=== PATIENT | female | born 1995 | race American Indian/Alaskan Native ===

== ENCOUNTER 2019-09-30 00:07 | Inpatient (IN) | payer OTHER ==
[2019-09-30] MEDS ORDERED: Carboprost Tromethamine 250 MCG/1 ML Amp IM PRN (02:10)
[2019-09-30] MEDS ORDERED: Sodium Chloride 0.9% 10 ML SDV IV PRN (02:10)
[2019-09-30] MEDS ORDERED: Sodium Chloride 0.9% 2.5 ML Syringe FLUSH PRN (02:10)
[2019-09-30] MEDS ORDERED: Water For Irrigation,Sterile 1,000 ML Container IRR PRN (02:10)
[2019-09-30] MEDS ORDERED: Misoprostol 200 MCG Tab PO PRN (02:10)
[2019-09-30] MEDS ORDERED: Tranexamic Acid 1,000 MG in Sodium Chloride 0.9% 100 ML IV PRN (02:10)
[2019-09-30] MEDS ORDERED: Butorphanol 1 MG/ML SDV IVPUSH PRN (02:10)
[2019-09-30] MEDS ORDERED: Methylergonovine 0.2 MG/1 ML Amp IM PRN (02:10)
[2019-09-30] MEDS ORDERED: Ondansetron 4 MG/2 ML SDV IVPUSH PRN (02:10)
[2019-09-30] MEDS ORDERED: Sodium Chloride 0.9% 10 ML Syringe FLUSH PRN (02:10)
[2019-09-30] MEDS ORDERED: Lidocaine 1% 50 ML MDV INJECT PRN (02:10)
[2019-09-30] MEDS ORDERED: Oxytocin/0.9 % Sodium Chloride 30 UNIT/500 ML BAG IV SCH ×2 (02:15→02:30)
[2019-09-30] MEDS ORDERED: Terbutaline 1 MG/ML SDV SUBCUT PRN (02:20)
[2019-09-30] MEDS ORDERED: Misoprostol 25 MCG (1/4 of 100 MCG) Tab VAG PRN (02:20)
[2019-09-30] MEDS: Lactated Ringers 1,000 ML IV SCH ×2 (02:55→21:41)
[2019-09-30] MEDS ORDERED: Vancomycin 2 GM in Sodium Chloride 0.9% 500 ML IV SCH (03:30)
[2019-09-30] MEDS: Misoprostol 25 MCG (1/4 of 100 MCG) Tab VAG PRN ×3 (08:00→16:12)
[2019-09-30] MEDS: Vancomycin 2 GM in Sodium Chloride 0.9% 500 ML IV SCH ×2 (12:28→20:03)
[2019-09-30] MEDS ORDERED: Oxytocin/0.9 % Sodium Chloride 30 UNIT/500 ML BAG ONE (16:51)
[2019-09-30] MEDS ORDERED: Ropivacaine HCl/PF 100 ML ONE (21:22)
[2019-09-30] MEDS ORDERED: fentaNYL 100 MCG/2 ML SDV ONE (21:22)
--- NOTE | 2019-09-30 21:50 | PCM.PREANE ---
Preanesthetic Assessment - Anesthesia/Transfusion/Family Hx Anesthesia History: Prior Anesthesia Without Reaction Family History of Anesthesia Reaction: No Transfusion History: No Prior Transfusion(s) Type of Transfusion Reactions: Reports: Unknown - Review of Systems General: No Symptoms Pulmonary: No Symptoms Cardiovascular: No Symptoms Gastrointestinal: No Symptoms Neurological: No Symptoms, Change in Speech - Physical Assessment NPO Status Date: 09/30/19 NPO Status Time: 16:00 Height: 1.88 m Weight: 138.028 kg ASA Class: 2 Thyro-Mental Finger Breadths: 3 Mouth Opening Finger Breadths: 3 - Lab Values: Laboratory Last Values WBC 8.52 K/uL (4.0-11.0) 09/30/19 02:48 RBC 4.29 M/uL (4.30-5.90) L 09/30/19 02:48 Hgb 11.9 g/dL (12.0-16.0) L 09/30/19 02:48 Hct 36.1 % (36.0-46.0) 09/30/19 02:48 MCV 84.1 fL (80.0-98.0) 09/30/19 02:48 MCH 27.7 pg (27.0-32.0) 09/30/19 02:48 MCHC 33.0 g/dL (31.0-37.0) 09/30/19 02:48 RDW Std Deviation 44.8 fl (28.0-62.0) 09/30/19 02:48 RDW Coeff of Zachariah 15 % (11.0-15.0) 09/30/19 02:48 Plt Count 223 K/uL (150-400) 09/30/19 02:48 MPV 9.50 fL (7.40-12.00) 09/30/19 02:48 Nucleated RBC % 0.0 /100WBC 09/30/19 02:48 Nucleated RBCs # 0 K/uL 09/30/19 02:48 COVID-19 (OLIVIA) NEGATIVE (NEGATIVE) 09/30/19 02:00 Blood Type A POSITIVE 09/30/19 02:48 Antibody Screen NEGATIVE 09/30/19 02:48 - Allergies Allergies/Adverse Reactions: Allergies Allergy/AdvReac Type Severity Reaction Status Date / Time amoxicillin Allergy Hives Verified 09/28/19 03:38 Penicillins Allergy Hives Verified 09/28/19 03:38 - Acknowledgements Anesthesia Type Planned: Epidural Pt an Appropriate Candidate for the Planned Anesthesia: Yes Alternatives and Risks of Anesthesia Discussed w Pt/Guardian: Yes Pt/Guardian Understands and Agrees with Anesthesia Plan: Yes PreAnesthesia Questionnaire HEENT History: Reports: None Cardiovascular History: Reports: None Respiratory History: Reports: None Gastrointestinal History: Reports: None Genitourinary History: Reports: None RUG DRY ROOM ATTENDANT History: Reports: None Musculoskeletal History: Reports: None Neurological History: Reports: None Psychiatric History: Reports: None Endocrine/Metabolic History: Reports: None Hematologic History: Reports: None Immunologic History: Reports: None Oncologic (Cancer) History: Reports: None Dermatologic History: Reports: None - Infectious Disease History Infectious Disease History: Reports: Chicken Pox - Past Surgical History Head Surgeries/Procedures: Reports: None HEENT Surgical History: Reports: None Cardiovascular Surgical History: Reports: None Respiratory Surgical History: Reports: None GI Surgical History: Reports: None Female Surgical History: Reports: None Endocrine Surgical History: Reports: None Neurological Surgical History: Reports: None Musculoskeletal Surgical History: Reports: None Oncologic Surgical History: Reports: None Dermatological Surgical History: Reports: None - SUBSTANCE USE Smoking Status *Q: Never Smoker Second Hand Smoke Exposure: No Recreational Drug Use History: No - HOME MEDS Home Medications: Home Meds Cetirizine HCl [Zyrtec] 09/30/19 [History] Pnv #30/Iron Carb&Aspg/Fa/Om3 [OB Complete with DHA Softgel] 09/30/19 [History] - CURRENT (IN HOUSE) MEDS Current Meds: Current Medications Butorphanol Tartrate (Stadol) 1 mg IVPUSH Q1H PRN PRN Reason: Pain Last Admin: 09/30/19 19:59 Dose: 1 mg Documented by: Carboprost Tromethamine (Hemabate Ds) 250 mcg IM ASDIRECTED PRN PRN Reason: Post Hemorrhage Lactated Ringer's (Ringers, Lactated) 1,000 mls @ 150 mls/hr IV ASDIRECTED LEYLA Last Admin: 09/30/19 21:41 Dose: 999 mls/hr Documented by: Oxytocin/Sodium Chloride (Oxytocin 30 Unit/500 Ml-Ns) 30 unit in 500 mls @ 999 mls/hr IV TITRATE LEYLA Tranexamic Acid 1,000 mg/ (Sodium Chloride) 110 mls @ 660 mls/hr IV ONETIME PRN PRN Reason: Bleeding Oxytocin/Sodium Chloride (Oxytocin 30 Unit/500 Ml-Ns) 30 unit in 500 mls @ 2 mls/hr IV TITRATE LEYLA; Protocol Vancomycin HCl 2 gm/ Sodium (Chloride) 500 mls @ 166.667 mls/hr IV Q8H [facility] Last Admin: 09/30/19 20:03 Dose: 166.667 mls/hr Documented by: Lidocaine HCl (Xylocaine 1%) 50 ml INJECT ONETIME PRN PRN Reason: Laceration repair Methylergonovine Maleate (Methergine) 0.2 mg IM ASDIRECTED PRN PRN Reason: Post Hemorrhage Misoprostol (Cytotec) 200 mcg PO ONETIME PRN PRN Reason: Post Hemorrhage Misoprostol (Cytotec) 25 mcg VAG ONETIME PRN PRN Reason: Cervical Ripening Last Admin: 09/30/19 03:59 Dose: 25 mcg Documented by: Misoprostol (Cytotec) 25 mcg VAG Q4H PRN PRN Reason: Cervical Ripening Last Admin: 09/30/19 16:12 Dose: 25 mcg Documented by: Ondansetron HCl (Zofran) 4 mg IVPUSH Q6H PRN PRN Reason: Nausea/Vomiting Sodium Chloride (Saline Flush) 10 ml FLUSH ASDIRECTED PRN PRN Reason: Keep Vein Open Sodium Chloride (Saline Flush) 2.5 ml FLUSH ASDIRECTED PRN PRN Reason: Keep Vein Open Sodium Chloride (Normal Saline) 10 ml IV ASDIRECTED PRN PRN Reason: IV Use Sterile Water (Sterile Water For Irrigation) 1,000 ml IRR ASDIRECTED PRN PRN Reason: delivery Terbutaline Sulfate (Brethine) 0.25 mg SUBCUT ASDIRECTED PRN PRN Reason: Tacysystole Discontinued Medications Fentanyl (Sublimaze) Confirm Administered Dose 100 mcg .ROUTE .STK-MED ONE Stop: 09/30/19 21:23 Vancomycin HCl 2 gm/ Sodium (Chloride) 250 mls @ 166 mls/hr IV Q8H [facility] Vancomycin HCl 2 gm/ Sodium (Chloride) 500 mls @ 166 mls/hr IV Q8H [facility] Last Admin: 09/30/19 03:55 Dose: 166 mls/hr Documented by: Oxytocin/Sodium Chloride (Oxytocin 30 Unit/500 Ml-Ns) Confirm Administered Dose 30 unit in 500 mls @ as directed .ROUTE .RUSTMED ONE Stop: 09/30/19 16:52 Ropivacaine (Naropin 0.2%) Confirm Administered Dose 100 mls @ as directed .ROUTE .RUSTMED ONE Stop: 09/30/19 21:23
--- NOTE | 2019-09-30 21:56 | PCM.PRNOTE ---
- Free Text/Narrative Note: Anes. Note pt requested labor epidural for L and D Risks and methods discussed. She wishes to proceed Level L2-L3 midline approach. Sterile technique used Chloroprep scrub to lumbar area Steril fenestrated drape applied Epidural space easily achieved Single attempt using MARC Tech MARC at 5cm Cath threaded 5cm with ease Cath secured at skin at 12 cm using Steril clear adhesives dressing Test dose 2145 3cc 1.5% lido with Epi neg Load 2148 10cc 0.2% Ropivacaine with 1mcg/cc Fentanyl added Pump 2151 90cc same solution Rate is 8cc/hr with 6cc q 20 min bolus JESS well Time with patient [id number] Tremayne Melendez FISCAL ACCOUNTANT
[2019-10-01] MEDS: Vancomycin 2 GM in Sodium Chloride 0.9% 500 ML IV SCH (03:42)
[2019-10-01] MEDS ORDERED: fentaNYL 100 MCG/2 ML SDV ONE (07:04)
[2019-10-01] MEDS ORDERED: Ropivacaine HCl/PF 100 ML ONE (07:05)
--- NOTE | 2019-10-01 07:20 | PCM.PRNOTE ---
- Free Text/Narrative Note: Anes Note Epidural infusion is complete. A new epidural bag was placed. 100 cc o,2% ropiviciane with 1 mcg cc fentanyl was started. a 10 cc bolus was administered in slow divided doses. An infusion was started with 90 cc solution at 8 cc hr with 6 cc q 20 min prn bolus. Time with patient [id number]. Tremayne Melendez CRNA
[2019-10-01] MEDS ORDERED: Ibuprofen 400 MG Tab PO PRN (10:55)
[2019-10-01] MEDS ORDERED: Acetaminophen 500 MG Tab PO PRN ×2 (10:55)
[2019-10-01] MEDS ORDERED: Witch Hazel Medicated Pads 40/Jar TOP PRN (10:55)
[2019-10-01] MEDS ORDERED: Benzocaine/Menthol 20%-0.5% Spray 78 GM Cannister TOP PRN (10:55)
[2019-10-01] MEDS ORDERED: Lanolin 100% Cream 7 GM Tube TOP PRN (10:55)
[2019-10-01] MEDS ORDERED: Docusate Sodium 100 MG Cap PO PRN (10:55)
[2019-10-01] MEDS ORDERED: oxyCODONE 5 MG Tab PO PRN (10:55)
[2019-10-01] MEDS ORDERED: Bisacodyl 10 MG Supp RECTAL PRN (10:55)
--- NOTE | 2019-10-01 11:02 | PCM.OPNOTE ---
- General Post-Op/Procedure Note Date of Surgery/Procedure: 10/01/19 Operative Procedure(s): /1st MLL repaired Findings: Viable female AGPARs 8, 9 weight 4120 gm. Spontaneous delivery intact placenta with 3V cord Pre Op Diagnosis: 41/1 week IUP. IOL for past due PG Post-Op Diagnosis: Same Anesthesia Technique: Epidural Primary Surgeon: Katarina Najera EBL in mLs: 250 Complications: none known Condition: Stable Free Text/Narrative:: Dictation [id number]
[2019-10-01] MEDS: Ibuprofen 800 MG Tab PO PRN (14:08)
--- NOTE | 2019-10-01 14:53 | OR ---
SURGEON: Katarina Najera M.D. DATE OF PROCEDURE: 10/01/2019 PREOPERATIVE DIAGNOSES: 1. 41/1 week intrauterine . 2. Induction of labor for past due . 3. Group B beta strep positive. POSTOPERATIVE DIAGNOSES: 1. 41/1 week intrauterine . 2. Induction of labor for past due . 3. Group B beta strep positive. PROCEDURE: Spontaneous vaginal delivery with first-degree vaginal laceration repaired. ANESTHESIA: Epidural. ESTIMATED BLOOD LOSS: 250 mL. COMPLICATIONS: None known. FINDINGS: Viable female. score of 8 at 1 minute and 9 at 5 minutes. Weight of 4120 g. Spontaneous delivery, intact three-vessel cord. DISPOSITION: Infant to nursery, mom in LDRP, stable. PROCEDURE DETAILS: Lavern is a 24-year-old, G1, P0, at 40 and 6/7 weeks' gestational age who was admitted on the evening of 09/29/2019 for scheduled induction of labor for past due . She was initiated on Cytotec ripening. heart tones were category 1. She is known group B beta strep positive and is penicillin and amoxicillin allergic and clindamycin resistant. Therefore, vancomycin is being utilized. The patient responded slowly to the Cytotec. The following afternoon, actually the patient was becoming slightly more uncomfortable, but cervix was still only about 2 cm, 60% effaced, and -2 station. Therefore, she underwent mechanical bulb dilation with cervical catheter. This did help progress the patient nicely. She became quite a bit increasingly uncomfortable, underwent regional anesthesia in the form of epidural. Shortly after 10 p.m., the bulb did extrude nicely as the patient was found to be 4 cm, 70% effaced, -2 station. Amniotomy was performed. Clear fluid was returned. IUPC was placed. The patient continued to labor throughout the night hours on Pitocin induction. By the following morning, the patient was found to be 8 cm, 90% effaced, at 0 station, and within the next 2 hours progressed to complete, 100% effaced, +2 station, and began pushing efforts. The patient pushed through to +3 station, I was called for delivery. At that time, even though I readily presented, the nurse did not recognize the +4 station, continued pushing efforts. I did not discontinue the Pitocin, did not reposition the patient to the left lateral side, and thus the head delivered. Other attending nursing staff from the nursery went on to deliver 's anterior and posterior shoulder, remainder of body without difficulty. Shortly thereafter, I arrived, the infant was vigorous and crying. The typing element machine operator had been in-house with the transfer. The cord was clamped x2 and cut. The cord arterial, cord venous, and cord blood sampling was obtained. Light pressure was applied while the placenta was delivered spontaneously intact. Vigorous fundal uterine massage was then applied while 30 units of Pitocin was delivered in 500 mL of IV fluid. Upon inspection of cervix, vaginal sidewall, and perineum, there was found to be first-degree vaginal laceration repaired using 3-0 Vicryl in continuous running fashion. Hemostasis evident. Uterus remained firm. Sponge count, instrument count, needle counts were correct. The patient tolerated the procedure well overall. She will remain in LDRP, infant to nursery. AIDE / RENETTA /[id number] NICOLAS
--- NOTE | 2019-10-01 19:44 | PCM48HPAN ---
Post Anesthesia Note - EVALUATION WITHIN 48HRS OF ANESTHETIC Vital Signs in Normal Range: Yes Patient Participated in Evaluation: Yes Respiratory Function Stable: Yes Airway Patent: Yes Cardiovascular Function Stable: Yes Hydration Status Stable: Yes Pain Control Satisfactory: Yes Nausea and Vomiting Control Satisfactory: Yes Mental Status Recovered: Yes Vital Signs: Last Vital Signs Temp 36.9 C 10/01/19 15:47 Pulse 88 10/01/19 15:47 Resp 17 10/01/19 15:47 BP 132/66 10/01/19 15:47 Pulse Ox 96 10/01/19 15:47
--- NOTE | 2019-10-02 04:51 | PCM.PNPP ---
- General Info Date of Service: 10/02/19 Functional Status: Reports: Pain Controlled, Tolerating Diet, Ambulating, Urinating - Review of Systems General: Reports: Fatigue. Denies: Fever, Weakness Pulmonary: Denies: Shortness of Breath Cardiovascular: Denies: Chest Pain, Palpitations, Lightheadedness Gastrointestinal: Denies: Abdominal Pain, Nausea, Vomiting Genitourinary: Denies: Flank Pain Musculoskeletal: Reports: No Symptoms Skin: Reports: No Symptoms Neurological: Reports: No Symptoms Psychiatric: Reports: No Symptoms - General Info Date of Service: 10/02/19 - Patient Data Vital Signs - Most Recent: Last Vital Signs Temp 36.8 C 10/01/19 20:50 Pulse 80 10/01/19 20:50 Resp 16 10/01/19 20:50 BP 136/77 10/01/19 20:50 Pulse Ox 98 10/01/19 20:50 Weight - Most Recent: 138.028 kg Lab Results - Last 24 Hours: Laboratory Results - last 24 hr 10/01/19 Range/Units 10:20 Cord ABG pH 7.253 (7.18-7.38) Cord ABG Base Excess -9 (-10--2) Cord VBG pH 7.256 (7.25-7.45) Cord VBG Base Excess -9 (-10--2) Med Orders - Current: Current Medications Acetaminophen (Tylenol Extra Strength) 500 mg PO Q4H PRN PRN Reason: Pain Acetaminophen (Tylenol Extra Strength) 1,000 mg PO Q4H PRN PRN Reason: Pain Benzocaine/Menthol (Dermoplast Pain Relief 20%-0.5% Castile) 78 gm TOP ASDIRECTED PRN PRN Reason: Perineal Comfort Measure Last Admin: 10/01/19 14:06 Dose: 1 canister Documented by: Bisacodyl (Dulcolax) 10 mg RECTAL ONETIME PRN PRN Reason: Constipation Carboprost Tromethamine (Hemabate Ds) 250 mcg IM ASDIRECTED PRN PRN Reason: Post Hemorrhage Docusate Sodium (Colace) 100 mg PO BID PRN PRN Reason: Constipation Emollient Ointment (Lansinoh Hpa) 0 gm TOP ASDIRECTED PRN PRN Reason: Sore Nipples Last Admin: 10/01/19 14:07 Dose: 7 g Documented by: Lactated Ringer's (Ringers, Lactated) 1,000 mls @ 150 mls/hr IV ASDIRECTED LEYLA Last Admin: 09/30/19 21:41 Dose: 999 mls/hr Documented by: Oxytocin/Sodium Chloride (Oxytocin 30 Unit/500 Ml-Ns) 30 unit in 500 mls @ 999 mls/hr IV TITRATE LEYLA Last Infusion: 10/01/19 11:06 Dose: 500 mls/hr Documented by: Tranexamic Acid 1,000 mg/ (Sodium Chloride) 110 mls @ 660 mls/hr IV ONETIME PRN PRN Reason: Bleeding Oxytocin/Sodium Chloride (Oxytocin 30 Unit/500 Ml-Ns) 30 unit in 500 mls @ 2 mls/hr IV TITRATE [facility]; Protocol Last Titration: 10/01/19 10:20 Dose: 0 munits/min, 0 mls/hr Documented by: Ibuprofen (Motrin) 400 mg PO Q4H PRN PRN Reason: Pain Ibuprofen (Motrin) 800 mg PO Q6H PRN PRN Reason: Pain Last Admin: 10/01/19 14:08 Dose: 800 mg Documented by: Methylergonovine Maleate (Methergine) 0.2 mg IM ASDIRECTED PRN PRN Reason: Post Hemorrhage Ondansetron HCl (Zofran) 4 mg IVPUSH Q6H PRN PRN Reason: Nausea/Vomiting Oxycodone HCl (Oxycodone) 5 mg PO Q2H PRN PRN Reason: Pain Sodium Chloride (Saline Flush) 10 ml FLUSH ASDIRECTED PRN PRN Reason: Keep Vein Open Sodium Chloride (Saline Flush) 2.5 ml FLUSH ASDIRECTED PRN PRN Reason: Keep Vein Open Sodium Chloride (Normal Saline) 10 ml IV ASDIRECTED PRN PRN Reason: IV Use Sterile Water (Sterile Water For Irrigation) 1,000 ml IRR ASDIRECTED PRN PRN Reason: delivery Witch Vandana (Tucks) 1 pad TOP ASDIRECTED PRN PRN Reason: comfort care Last Admin: 10/01/19 14:06 Dose: 1 tub Documented by: Discontinued Medications Butorphanol Tartrate (Stadol) 1 mg IVPUSH Q1H PRN PRN Reason: Pain Last Admin: 09/30/19 19:59 Dose: 1 mg Documented by: Fentanyl (Sublimaze) Confirm Administered Dose 100 mcg .ROUTE .STK-MED ONE Stop: 09/30/19 21:23 Last Admin: 10/01/19 15:03 Dose: Not Given Documented by: Fentanyl (Sublimaze) Confirm Administered Dose 100 mcg .ROUTE .STK-MED ONE Stop: 10/01/19 07:05 Last Admin: 10/01/19 15:04 Dose: Not Given Documented by: Vancomycin HCl 2 gm/ Sodium (Chloride) 250 mls @ 166 mls/hr IV Q8H LEYLA Vancomycin HCl 2 gm/ Sodium (Chloride) 500 mls @ 166 mls/hr IV Q8H LEYLA Last Admin: 09/30/19 03:55 Dose: 166 mls/hr Documented by: Vancomycin HCl 2 gm/ Sodium (Chloride) 500 mls @ 166.667 mls/hr IV Q8H LEYLA Last Admin: 10/01/19 03:42 Dose: 166.667 mls/hr Documented by: Oxytocin/Sodium Chloride (Oxytocin 30 Unit/500 Ml-Ns) Confirm Administered Dose 30 unit in 500 mls @ as directed .ROUTE .STK-MED ONE Stop: 09/30/19 16:52 Ropivacaine (Naropin 0.2%) Confirm Administered Dose 100 mls @ as directed .ROUTE .STK-MED ONE Stop: 09/30/19 21:23 Last Admin: 10/01/19 15:03 Dose: Not Given Documented by: Ropivacaine (Naropin 0.2%) Confirm Administered Dose 100 mls @ as directed .ROUTE .STK-MED ONE Stop: 10/01/19 07:06 Last Admin: 10/01/19 15:04 Dose: Not Given Documented by: Lidocaine HCl (Xylocaine 1%) 50 ml INJECT ONETIME PRN PRN Reason: Laceration repair Misoprostol (Cytotec) 200 mcg PO ONETIME PRN PRN Reason: Post Hemorrhage Misoprostol (Cytotec) 25 mcg VAG ONETIME PRN PRN Reason: Cervical Ripening Last Admin: 09/30/19 03:59 Dose: 25 mcg Documented by: Misoprostol (Cytotec) 25 mcg VAG Q4H PRN PRN Reason: Cervical Ripening Last Admin: 09/30/19 16:12 Dose: 25 mcg Documented by: Terbutaline Sulfate (Brethine) 0.25 mg SUBCUT ASDIRECTED PRN PRN Reason: Tacysystole - Infant Interaction Support Person: , Mother - Recovery Exam Fundal Tone: Firm Fundal Level: At Umbilicus Fundal Placement: Midline Lochia Amount: Scant Lochia Color: Rubra/Red Perineum Description: Edematous Episiotomy/Laceration: Approximated Bladder Status: Nonpalpable, Voiding Urinary Elimination: Voided - Exam General: Alert, Oriented Lungs: Normal Respiratory Effort Cardiovascular: Regular Rate, Regular Rhythm GI/Abdominal Exam: Normal Bowel Sounds, Soft Extremities: Pedal Edema (trace). No: Javy's Sign Skin: Warm, Dry, Intact Neurological: No New Focal Deficit Psy/Mental Status: Alert, Normal Affect, Normal Mood - Problem List & Annotations (1) Vaginal delivery SNOMED Code(s): 961222745 Code(s): O80 - ENCOUNTER FOR FULL-TERM UNCOMPLICATED DELIVERY Status: Acute Current Visit: Yes - Problem List Review Problem List Initiated/Reviewed/Updated: Yes - My Orders Last 24 Hours: My Active Orders 10/01/19 10:55 Patient Status [ADT] Routine May Shower [RC] ASDIRECTED Up ad Alana [RC] ASDIRECTED Vital Signs [RC] PER UNIT ROUTINE Acetaminophen [Tylenol Extra Strength] 1,000 mg PO Q4H PRN Acetaminophen [Tylenol Extra Strength] 500 mg PO Q4H PRN Benzocaine/Menthol [Dermoplast Pain Relief 20%-0.5% Castile] 78 gm TOP ASDIRECTED PRN Docusate Sodium [Colace] 100 mg PO BID PRN Ibuprofen [Motrin] 400 mg PO Q4H PRN Ibuprofen [Motrin] 800 mg PO Q6H PRN Lanolin [Lansinoh HPA] See Dose Instructions TOP ASDIRECTED PRN bisacodyL [Dulcolax] 10 mg RECTAL ONETIME PRN oxyCODONE 5 mg PO Q2H PRN witch Vandana [Tucks] 1 pad TOP ASDIRECTED PRN Assess Lochia [WOMSER] Per Unit Routine Assess Uterine Involution [WOMSER] Per Unit Routine Peripheral IV Discontinue [OM.PC] Routine 10/01/19 10:56 Cooling Warming Measures [RC] ASDIRECTED Ice Therapy [OM.PC] Per Unit Routine Perineal Care [OM.PC] Per Unit Routine Sitz Bath [OM.PC] Per Unit Routine 10/02/19 05:11 HEMOGLOBIN/HEMATOCRIT,HH [HEME] Routine - Assessment Assessment:: PPD 1 status post - Plan Plan:: Patient is doing well overall. Private Investigator Surveillance prefers to monitor baby for 48 hours given GBBS + and vancomycin coverage--plus baby has been having some lower blood sugars. Will continue PP cares and anticipate discharge tomorrow.
[2019-10-02] MEDS: Ibuprofen 800 MG Tab PO PRN ×2 (05:17→22:03)
[2019-10-03] MEDS ORDERED: Measles, Mumps & Rubella Vaccine 0.5 ML SDV SUBCUT ONE (10:32)
--- NOTE | 2019-10-03 10:34 | PCM.PNPP ---
- General Info Date of Service: 10/03/19 Functional Status: Reports: Pain Controlled, Tolerating Diet, Ambulating, Urinating - Review of Systems General: Reports: Fatigue. Denies: Fever, Weakness Pulmonary: Denies: Shortness of Breath Cardiovascular: Denies: Chest Pain, Palpitations Gastrointestinal: Denies: Constipation Genitourinary: Denies: Dysuria, Flank Pain Musculoskeletal: Reports: No Symptoms Skin: Reports: No Symptoms Neurological: Reports: No Symptoms Psychiatric: Reports: No Symptoms - General Info Date of Service: 10/03/19 - Patient Data Vital Signs - Most Recent: Last Vital Signs Temp 36.5 C 10/03/19 08:00 Pulse 71 10/03/19 08:00 Resp 17 10/03/19 08:00 BP 134/65 10/03/19 08:00 Pulse Ox 97 10/03/19 08:00 Weight - Most Recent: 138.028 kg Med Orders - Current: Current Medications Acetaminophen (Tylenol Extra Strength) 500 mg PO Q4H PRN PRN Reason: Pain Acetaminophen (Tylenol Extra Strength) 1,000 mg PO Q4H PRN PRN Reason: Pain Benzocaine/Menthol (Dermoplast Pain Relief 20%-0.5% [place]) 78 gm TOP ASDIRECTED PRN PRN Reason: Perineal Comfort Measure Last Admin: 10/01/19 14:06 Dose: 1 canister Documented by: Bisacodyl (Dulcolax) 10 mg RECTAL ONETIME PRN PRN Reason: Constipation Carboprost Tromethamine (Hemabate Ds) 250 mcg IM ASDIRECTED PRN PRN Reason: Post Hemorrhage Docusate Sodium (Colace) 100 mg PO BID PRN PRN Reason: Constipation Emollient Ointment (Lansinoh Hpa) 0 gm TOP ASDIRECTED PRN PRN Reason: Sore Nipples Last Admin: 10/01/19 14:07 Dose: 7 g Documented by: Lactated Ringer's (Ringers, Lactated) 1,000 mls @ 150 mls/hr IV ASDIRECTED LEYLA Last Admin: 09/30/19 21:41 Dose: 999 mls/hr Documented by: Oxytocin/Sodium Chloride (Oxytocin 30 Unit/500 Ml-Ns) 30 unit in 500 mls @ 999 mls/hr IV TITRATE LEYLA Last Infusion: 10/01/19 11:06 Dose: 500 mls/hr Documented by: Tranexamic Acid 1,000 mg/ (Sodium Chloride) 110 mls @ 660 mls/hr IV ONETIME PRN PRN Reason: Bleeding Oxytocin/Sodium Chloride (Oxytocin 30 Unit/500 Ml-Ns) 30 unit in 500 mls @ 2 mls/hr IV TITRATE LEYLA; Protocol Last Titration: 10/01/19 10:20 Dose: 0 munits/min, 0 mls/hr Documented by: Ibuprofen (Motrin) 400 mg PO Q4H PRN PRN Reason: Pain Ibuprofen (Motrin) 800 mg PO Q6H PRN PRN Reason: Pain Last Admin: 10/02/19 22:03 Dose: 800 mg Documented by: Methylergonovine Maleate (Methergine) 0.2 mg IM ASDIRECTED PRN PRN Reason: Post Hemorrhage Ondansetron HCl (Zofran) 4 mg IVPUSH Q6H PRN PRN Reason: Nausea/Vomiting Oxycodone HCl (Oxycodone) 5 mg PO Q2H PRN PRN Reason: Pain Sodium Chloride (Saline Flush) 10 ml FLUSH ASDIRECTED PRN PRN Reason: Keep Vein Open Sodium Chloride (Saline Flush) 2.5 ml FLUSH ASDIRECTED PRN PRN Reason: Keep Vein Open Sodium Chloride (Normal Saline) 10 ml IV ASDIRECTED PRN PRN Reason: IV Use Sterile Water (Sterile Water For Irrigation) 1,000 ml IRR ASDIRECTED PRN PRN Reason: delivery Witch Vandana (Tucks) 1 pad TOP ASDIRECTED PRN PRN Reason: comfort care Last Admin: 10/01/19 14:06 Dose: 1 tub Documented by: Discontinued Medications Butorphanol Tartrate (Stadol) 1 mg IVPUSH Q1H PRN PRN Reason: Pain Last Admin: 09/30/19 19:59 Dose: 1 mg Documented by: Fentanyl (Sublimaze) Confirm Administered Dose 100 mcg .ROUTE .STK-MED ONE Stop: 09/30/19 21:23 Last Admin: 10/01/19 15:03 Dose: Not Given Documented by: Fentanyl (Sublimaze) Confirm Administered Dose 100 mcg .ROUTE .STK-MED ONE Stop: 10/01/19 07:05 Last Admin: 10/01/19 15:04 Dose: Not Given Documented by: Vancomycin HCl 2 gm/ Sodium (Chloride) 250 mls @ 166 mls/hr IV Q8H LEYLA Vancomycin HCl 2 gm/ Sodium (Chloride) 500 mls @ 166 mls/hr IV Q8H [facility] Last Admin: 09/30/19 03:55 Dose: 166 mls/hr Documented by: Vancomycin HCl 2 gm/ Sodium (Chloride) 500 mls @ 166.667 mls/hr IV Q8H [facility] Last Admin: 10/01/19 03:42 Dose: 166.667 mls/hr Documented by: Oxytocin/Sodium Chloride (Oxytocin 30 Unit/500 Ml-Ns) Confirm Administered Dose 30 unit in 500 mls @ as directed .ROUTE .STK-MED ONE Stop: 09/30/19 16:52 Ropivacaine (Naropin 0.2%) Confirm Administered Dose 100 mls @ as directed .ROUTE .STK-MED ONE Stop: 09/30/19 21:23 Last Admin: 10/01/19 15:03 Dose: Not Given Documented by: Ropivacaine (Naropin 0.2%) Confirm Administered Dose 100 mls @ as directed .ROUTE .STK-MED ONE Stop: 10/01/19 07:06 Last Admin: 10/01/19 15:04 Dose: Not Given Documented by: Lidocaine HCl (Xylocaine 1%) 50 ml INJECT ONETIME PRN PRN Reason: Laceration repair Misoprostol (Cytotec) 200 mcg PO ONETIME PRN PRN Reason: Post Hemorrhage Misoprostol (Cytotec) 25 mcg VAG ONETIME PRN PRN Reason: Cervical Ripening Last Admin: 09/30/19 03:59 Dose: 25 mcg Documented by: Misoprostol (Cytotec) 25 mcg VAG Q4H PRN PRN Reason: Cervical Ripening Last Admin: 09/30/19 16:12 Dose: 25 mcg Documented by: Terbutaline Sulfate (Brethine) 0.25 mg SUBCUT ASDIRECTED PRN PRN Reason: Tacysystole - Infant Interaction Support Person: , Mother - Recovery Exam Fundal Tone: Firm Fundal Level: 1 Fingerbreadths Below Umbilicus Fundal Placement: Midline Lochia Amount: Small Lochia Color: Rubra/Red Perineum Description: Other (see below) Other Perinuem Description: 1st degree laceration Episiotomy/Laceration: Approximated Bladder Status: Voiding Urinary Elimination: Voided - Exam General: Alert, Oriented Lungs: Normal Respiratory Effort Cardiovascular: Regular Rate, Regular Rhythm GI/Abdominal Exam: Normal Bowel Sounds, Soft Extremities: Pedal Edema (trace). No: Javy's Sign Skin: Warm, Dry, Intact Neurological: No New Focal Deficit Psy/Mental Status: Alert, Normal Affect, Normal Mood - Problem List & Annotations (1) Vaginal delivery SNOMED Code(s): 260482547 Code(s): O80 - ENCOUNTER FOR FULL-TERM UNCOMPLICATED DELIVERY Status: Acute Current Visit: Yes - Problem List Review Problem List Initiated/Reviewed/Updated: Yes - My Orders Last 24 Hours: My Active Orders 10/03/19 10:31 Ready for Discharge [RC] PER UNIT ROUTINE 10/03/19 10:32 Vaccines to be Administered [RC] PER UNIT ROUTINE Measles, Mumps & Rubella [M-M-R II Vaccine] 0.5 ml SUBCUT .ONCE ONE - Assessment Assessment:: PPD 2 status post - Plan Plan:: Patient feels ready to go home. MMR prior to discharge. Discharge instructions reviewed. Follow up at [facility] 6 weeks. Discharge to home today.
== END 2019-10-03 13:45 | disposition home or self-care (01) | DRG 807 ==
LOC: MW.OBCHECK 00:07 → MW.OB 00:08 → MW.OBCHECK 02:10 → OBSVTOIN 10-01 10:42 → MW.OB 10-01 15:15
PROVIDERS: ADMIT Obstetrics & Gynecology; ATTEND Obstetrics & Gynecology
PROC: 10E0XZZ Delivery of Products of Conception, External Approach (ICD-10-PCS; principal; 2019-10-01)
PROC: 0HQ9XZZ Repair Perineum Skin, External Approach (ICD-10-PCS; 2019-10-01)
PROC: 3E0P7VZ Introduction of Hormone into Female Reproductive, Via Natural or Artificial Opening (ICD-10-PCS; 2019-10-01)
PROC: 10907ZC Drainage of Amniotic Fluid, Therapeutic from Products of Conception, Via Natural or Artificial Opening (ICD-10-PCS; 2019-10-01)
PROC: 10H07YZ Insertion of Other Device into Products of Conception, Via Natural or Artificial Opening (ICD-10-PCS; 2019-10-01)
PROC: 3E0R3BZ Introduction of Anesthetic Agent into Spinal Canal, Percutaneous Approach (ICD-10-PCS; 2019-10-01)
PROC: 00HU33Z Insertion of Infusion Device into Spinal Canal, Percutaneous Approach (ICD-10-PCS; 2019-10-01)
PROC: 3E0234Z Introduction of Serum, Toxoid and Vaccine into Muscle, Percutaneous Approach (ICD-10-PCS; 2019-10-03)
DX: O48.0 Post-term pregnancy (principal); Z37.0 Single live birth; O99.824 Streptococcus B carrier state complicating childbirth; Z3A.41 41 weeks gestation of pregnancy; O70.0 First degree perineal laceration during delivery; Z23 Encounter for immunization; Z11.59 Encounter for screening for other viral diseases
CPT/HCPCS: 01967; 36415; 51702; 59025; 59200; 59409; 82803; 85014; 85018; 85027; 86592; 86850; 86900; 86901; 90471; 90707; A9270-GY; J0595; J2590; J2795; J3010; J3370; J7040; J7050; J7120; U0002